=== PATIENT | male | born 1985 | race Caucasian/White ===

== ENCOUNTER 2017-04-19 20:42 | Emergency (ER) | payer MEDICAID ==
[2017-04-19 20:50] VITALS: BP 127/74; PULSE 64; RESP 20; TEMP 98.2; O2SAT 95
--- NOTE | 2017-04-19 20:57 | EDPHY ---
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 No paresthesia. No sensory motor deficit. PHYSICAL EXAM (Prior to examination, patient consented to physical exam, hands were washed and my usual and customary physical exam procedures followed) 1) GENERAL: Well-developed, well-nourished, alert and oriented. Appears to be in no acute distress. 2) HEAD: Normocephalic 3) HEENT: sclera anicteric 4) LUNGS: Breathing comfortably. 5) SKIN: Flexor extensor function independently tested at the [facility] PIP D IP intact 6) MUSCULOSKELETAL: Right 2nd digit middle phalanx radial aspect 2.5 cm laceration . No visible palpable or foreign body. 7) NEUROLOGIC: Full sensation two-point discrimination intact distally (Toña,Paul Haleigh) Constitutional: Initial Vital Signs Temperature (C) 36.8 C 04/19/17 20:45 Heart Rate 64 04/19/17 20:45 Respiratory Rate 20 04/19/17 20:45 Blood Pressure 127/74 H 04/19/17 20:45 O2 Sat (%) 95 04/19/17 20:45 O2 Delivery Mode Room Air Allergies/Adverse Reactions: No Known Allergies Allergy (Unverified 04/19/17 20:45) Home Medications: Medication Instructions Recorded Albuterol 04/19/17 MDM/Departure - [facility] Procedures: Procedure: Laceration repair. I explained the indications, risks and benefits for both laceration repair and anesthetic administration. Verbal consent was obtained from the patient . The laceration on the right 2nd digit was anesthetized using 0.5% bupivicaine without epinephrine digital nerve block. After anesthetic administered the patient was observed for a period of time and had no apparent adverse effects. The wound was cleaned, prepped, draped in normal sterile fashion and explored to its base. No foreign body seen, no foreign bodies palpated. There were no deep structures involved. No tendon injury was identified. The wound was repaired with 4 simple interrupted 5 O Prolene sutures . The wound repair was simple. The procedure was performed by myself. Patient has been informed that scarring will occur, although efforts have been made to minimize this. ( Paul Ding) ED Course/Re-evaluation: I reviewed the patient his x-ray showing no definitive radiopaque foreign body. You need to return to the ER in 10 days for suture removal. Usual and customary wound precautions and instructions provided. Care of patient under supervision of secondary supervising physician Dr Deras . (Paul Ding) The patient was evaluated and managed by the physician's customer service assistant. My cosignature indicates that I reviewed the chart and I agree with the findings and plan of care as documented. I am the secondary supervising physician. ( Janelle Deras) - Depart Disposition: Home, Routine, Self-Care Clinical Impression: Finger laceration Qualifiers: Encounter type: initial encounter Finger: index finger Damage to nail status: without damage Foreign body presence: without foreign body Laterality: right Qualified Code(s): S61.210A - Laceration without foreign body of right index finger without damage to nail, initial encounter Condition: Good Instructions: Care For Your Stitches (ED), Laceration (ED) Referrals: Return, to the ER in 10 days for suture removal [Other] - 04/29/17
== END 2017-04-19 22:07 | disposition home or self-care (01) ==
PROC: 0HQFXZZ Repair Right Hand Skin, External Approach (ICD-10-PCS; principal; 2017-04-19)
DX: S61.210A Laceration without foreign body of right index finger without damage to nail, initial encounter (principal); X58.XXXA Exposure to other specified factors, initial encounter; Y92.63 Factory as the place of occurrence of the external cause; Y99.0 Civilian activity done for income or pay; Y93.G3 Activity, cooking and baking

== ENCOUNTER 2018-09-03 00:34 | Emergency (ER) | payer MEDICAID | END 2018-09-03 03:00 | disposition home or self-care (01) ==

== ENCOUNTER 2018-09-05 02:27 | Emergency (ER) | payer MEDICAID ==
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
[2018-09-05 03:57] VITALS: BP 120/77
== END 2018-09-05 04:15 | disposition home or self-care (01) ==
LOC: EDUNIT#
DX: G40.89 Other seizures (principal); F41.9 Anxiety disorder, unspecified

== ENCOUNTER 2018-09-05 09:12 | Inpatient (IN) | payer MEDICAID ==
[2018-09-05] MEDS ORDERED: NS 1,000 ML IV ONE (10:23)
[2018-09-05] MEDS ORDERED: PROMETHAZINE HCL 25 MG/ML INJ IVP ONE (10:23)
[2018-09-05] MEDS ORDERED: DIAZEPAM 10 MG/2 ML SYR IVP ONE (12:11)
[2018-09-05] MEDS ORDERED: ONDANSETRON 4 MG/2 ML VIAL IVP PRN (13:30)
[2018-09-05] MEDS ORDERED: IPRATROPIUM 0.03% NASAL SPRAY EACHNARE PRN (13:31)
[2018-09-05] MEDS ORDERED: OXYMETAZOLINE 30 ML NASAL SPRAY EACHNARE PRN (13:31)
[2018-09-05] MEDS ORDERED: OLANZapine DISINTEGR 5 MG TAB PO PRN (13:31)
--- NOTE | 2018-09-05 13:55 | PDGENHP ---
History and Physical - Chief Complaint Seizure - History of Present Illness Chacorta Elizondo is a 32 yo M with a PMhx of pseudoseizures, ADHD, anxiety, heroin use , asthma who presents to [facility] for seizure. Patient was brought from [facility] for a 3rd time in approx. 24 hours where it was reported he had 5 minutes of inconsistent tonic clonic activity that was witnessed by other patients there. He denies any tongue laceration, urinary incontinence, head trauma. He denies any postictal confusion. He notes that he has a hx of pseudoseizures for which he has had workups done including head scans, EEG and was prescribed long acting Xanax 2 mg daily. He lost his insurance about 1 year ago and was buying Xanax off of the street which he could no longer afford and has not taken it for a long time. He does not recall his last seizure. ED reports that staff at [facility] found patient taking his own medications there. He notes ~3 years of heroin use with last use right before admission to [facility] a few days ago. He denies any chest pain, SOB, n/v, f/c, d/c. History Information - Allergies/Home Medication List Allergies/Adverse Reactions: No Known Allergies Allergy (Verified 09/05/18 09:13) Home Medications: Albuterol 04/19/17 [Last Taken Unknown] I have personally reviewed and updated: family history, medical history, social history, surgical history - Past Medical History asthma Additional medical history: ADHD, Pseudoseizures - Surgical History Reports: no pertinent surgical hx - Family History Positive for: non-pertinent - Social History Smoking Status: Never smoked Drug Use: Heroin Review of Systems Review of Systems: ROS: 10pt was reviewed & negative except for what was stated in HPI & below Physical Exam Physical Exam: Temp Pulse Resp BP Pulse Ox 36.3 C 51 L 16 122/73 H 98 09/05/18 09:14 09/05/18 12:00 09/05/18 12:00 09/05/18 12:00 09/05/18 12:00 Constitutional: chronically ill appearing, unkempt Eyes: PERRL, EOMI Ears, Nose, Mouth, Throat: poor dentition, dry mucous membranes Cardiovascular: no murmur, rub, or gallop, bradycardia, No edema Respiratory: no respiratory distress, clear to auscultation Gastrointestinal: soft, non-tender abdomen Skin: warm Musculoskeletal: full muscle strength Neurologic: AAOx3 Psychiatric: anxious Assessment & Plan Assessment: Pseudoseizures - Patient admitted after witness tonic clonic activity at [facility], no tongue laceration on exam, no reported postictal period, no urinary incontinence - Possibly in setting of benzodiazepine withdrawal - Reports hx of Pseudoseizures, was taking 2 mg "long acting" Xanax daily up until lost insurance 1 yr ago - S/p 5 mg IV Valium in ED, AAOx3 on exam on admission - Will place seizure precautions, PRN Ativan as part of withdrawal order set - Will hold off on ordering ER Xanax 2 mg that patient reports, will place Neurology consult to evaluate in the AM for ongoing anti-epileptics and further necessary testing (possible EEG) Heroin/Benzodiazepine Dependence - Was previously at [facility] for detox - Will order withdrawal order set for management of withdrawal symptoms - Consult CM for dispo planning Bradycardia - Seen in ED recently for bradycardia at [facility] - HR 50's on admission - EKG reviewed with sinus bradycardia, no pauses, signs of heart block - Continue to monitor Asthma -Lungs CTA on admission -Will order PRN Albuterol for SOB Metabolic Acidosis - In setting of possible seizure - S/p IVF - Continue to monitor Anxiety - Reports uncontrolled anxiety for which he was prescribed Zoloft in the past - PRN Ativan as above as part of opoid withdrawal order set - Consider starting antidepressant prior to discharge FEN: S/p IVF, Regular DVT PPx: Low risk, SCDs Code: FULL Dispo: Admit to Observation
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
[2018-09-05] MEDS ORDERED: IBUPROFEN 600 MG TAB PO PRN (14:09)
[2018-09-05] MEDS ORDERED: ALBUTEROL 60 PUFFS/8 GM MDI IH PRN (14:09)
[2018-09-05] MEDS ORDERED: DICYCLOMINE 10 MG CAP ONE (14:17)
[2018-09-05] MEDS: DICYCLOMINE 20 MG TAB PO PRN (14:21)
--- NOTE | 2018-09-05 14:48 | CPEKG ---
Test Reason : OPEN Blood Pressure : / mmHG Vent. Rate : 039 BPM Atrial Rate : 039 BPM P-R Int : 150 ms QRS Dur : 092 ms QT Int : 504 ms P-R-T Axes : 063 014 047 degrees QTc Int : [address] elev, probable normal early repol pattern Confirmed by Marcello Deras ([id number]) on 09/05/2018 2:47:38 PM Referred By: MARCELLO DERAS Confirmed By:Marcello Deras
[2018-09-05 14:49] LABS: PLATELET COUNT 246 10^3/uL (150-400)
--- NOTE | 2018-09-05 16:51 | ASMTCMCOM ---
CM Note CM Note Notes: Pt presented to the ED through triage from [facility] for bradycardia and detox staff stating that pt has been taking his own benzodiazepines while at their facility. This is the pt's 3rd ED visit in the past 2 days. ED CM was initially consulted to look into getting pt into other detox options, treatment programs, provide resources, etc. Pt admitted for bradycardia, pseudoseizures, and benzo and heroin withdrawal. Pt states he initially went to detox for heroin withdrawal 2-3 days ago and admits to "sneaking in a couple of xanax because I was scared I wasn't going to be able to handle the withdrawal. It was stupid. I shouldn't have done it but I was scared." Pt states he only took one of the xanax the 1st night he was at detox, and then has been receiving Librium via detox staff since then. Pt states he has been using heroin for more than 10 years and in the past couple of years has used up to 2g/day everyday. Pt's last use of heroin was 2-3 days ago right before he went to detox. Pt states he has been using xanax for more than 10 years and recently has been using at least 2mg/day every day and his last use was 2-3 days ago. Pt states he initially was given a Rxn for Xanax more than 10 yrs ago for his seizures, "but that is what started all the drugs...I couldn't afford the Rxn so I started buying it on the street. Then it became difficult to find so I started using heroin." Pt denies SI and HI. Pt states he has a history of ADHD, depression, severe anxiety and panic attacks. Pt states he has never been seen by a mental health professional but then per H&P states he has been on Zoloft in the past. Pt states he has a history of seizures "but I don't have an actual seizure disorder. I don't have epilepsy. No one can tell me why I have seizures but they happen often and especially if I have a panic attack. I've been told they are pseudoseizures but I don't even know what that means." Pt states he does not have a PCP but gets seen at the [facility] in [place] "every now and then." Pt states he has never been seen by a neurologist. Pt mentioned he has been seen at [facility] and [facility] recently. Pt states he lives in an apartment in [place] with his two children and their mother, and a roommate. Pt states he has plans to followup outpatient in [place] for ongoing treatment and that his roommate would be able to transport him. Pt states he has been seen at the [facility] in the past for suboxone but is adamant that he "does not want to be on suboxone or methadone or any other replacement drug ever again." Pt could be a candidate for the [facility]: Patient Navigator, Charlene Hernandez ([phone]) to come visit pt and to ensure pt is making a fully educated/informed decision to NOT consider MAT w/suboxone; ED CM will reach out on Thursday. Exact DC needs TBD but pt will most likely need assistance w/ OP or IOP substance abuse treatment resources/referrals, PCP ([facility] in [place] ([phone]) care coordination, mental health resources (try to get pt an appt w/[facility] in [place]). [facility] referral sent via e-mail. CM to follow. Date Signed: 09/05/2018 04:50 PM Electronically Signed By:Diana Huynh RN
[2018-09-05] MEDS: LOPERAMIDE HCL 2 MG CAP PO PRN (21:45)
[2018-09-05] MEDS: LORazepam 1 MG TAB PO PRN (22:51)
[2018-09-05] MEDS: ONDANSETRON DISINTEGRATING 4 MG TAB PO PRN (23:09)
[2018-09-06] MEDS: DICYCLOMINE 20 MG TAB PO PRN ×3 (00:51→21:53)
[2018-09-06] MEDS: ACETAMINOPHEN 325 MG TAB PO PRN ×3 (02:08→21:53)
[2018-09-06] MEDS: MAG HYDROX/AL HYDROX/SIMETH 30 ML UDCUP PO PRN (02:59)
[2018-09-06] MEDS: hydrOXYzine HCL 25 MG TAB PO PRN ×3 (03:50→23:38)
[2018-09-06] MEDS ORDERED: NS 500 ML IV ONE (04:04)
[2018-09-06] MEDS ORDERED: NS 1,000 ML IV SCH (04:15)
--- NOTE | 2018-09-06 12:36 | GCON ---
[f rep st] CONSULTATION NEUROLOGY CONSULT DATE OF CONSULTATION: 09/06/2018 REFERRING PHYSICIAN: Dr. Makenzie CHIEF COMPLAINT: Convulsion. HISTORY OF PRESENT ILLNESS: The patient is a very pleasant 32-year-old gentleman originally from [place] who has a longstanding history of chemical dependence on opiates. The patient states he has anxiety and panic attacks and the diagnosis of "pseudoseizures" made in [place] by extensive neurologic testing. He moved here around 2 years ago and states that he lost insurance at some point and started using benzodiazepines recreationally. He was previously apparently prescribed Xanax 2 mg daily in [place]. He then also started using heroin as well. He was in chemical dependence treatment and had 3 ER visits within a short period of time in the last 48 hours for bradycardia and then 2 convulsive events. The 1st convulsive event was thought to be possible nonepileptic and the second one may have been a withdrawal seizure from benzodiazepines. Not clear. He states he does not have a diagnosis of epilepsy nor any epilepsy risk factors. He states he has a diagnosis of "pseudoseizures" and perhaps benzodiazepine withdrawal seizures is what he has been told in the past. His urine screen was non-negative for benzodiazepines. The patient does not recall the 2nd event, but the 1st event and 2nd ED visit he thinks he was aware. REVIEW OF SYSTEMS: 10-point review of systems was done, only pertinent to the HPI. For past medical history, social history, family history, home medications, allergies, see Dr. Banegas's H and P. PHYSICAL EXAM: VITAL SIGNS: Blood pressure is 116/72, temperature is 36.4, respiration 16. GENERAL: He is awake and alert, very pleasant. He has no aphasia. NEURO: Cranial nerve exam 2 through 7 is normal. Motor exam shows no focal weakness or convulsive movements. No myoclonus. Sensation to light touch is normal in all 4 extremities. Coordination is normal upper and lower extremities. IMPRESSION/PLAN: 1. Convulsions, not otherwise specified. 2. Chemical dependence. This patient is presenting with a complex history of chemical dependence, mood disorder, and convulsive events that are not clear. He has been told these have been diagnosed as nonepileptic events with extensive neurologic testing in [place]. He certainly may at additional risk for withdrawal seizures as well based on his chemical dependence history. The third ED visit for convulsion was company by a low bicarbonate on lab testing. Certainly, he may have had a withdrawal seizure. He was counseled at length. Going forward, he will be on indefinite driving restrictions and seizure precautions. He understands and agrees. He does not drive. He will continue close outpatient followup with psychiatry and chemical dependence and consult with the Department Neurology at the [facility] for confirmation of the underlying convulsive disorder. Specifically, he may need repeat epilepsy monitoring to clarify whether he has unprovoked epileptic seizures versus nonepileptic psychogenic events to help ongoing treatment in conjunction with this chemical dependence treatment in the future. He understands and agrees to the plan. He will follow up with the [facility]. Information given to make the appointment. No further recommendations from my standpoint. We will sign off and follow up as needed. Please do not hesitate to call if there are any questions or changes in his neurologic status. Seventy total minutes floor time today; over 50% in direct counseling and coordination of care. /[id number]/MODL MTDD
--- NOTE | 2018-09-06 15:01 | ASMTCMCOM ---
CM Note CM Note Notes: Patient seen by Opiate Navigators Charlene ext [phone] and Diana ext [phone]. They were stopping back to obtain a signature. The patient is currently sleeping. They will return tomorrow morning to give him information on local resources to assist him with his drug addiction. He will need a follow up appointment made at [facility] in [place] prior to discharge.. May likely be ready for dc tomorrow. Plan: OP versus inpt treatment program for detox. Date Signed: 09/06/2018 03:00 PM Electronically Signed By:Meg Yancey RN
--- NOTE | 2018-09-06 15:02 | ASMTCMCOM ---
CM Note CM Note Notes: Patient plan of care reviewed with MD. Patient is bradycardic and c/o feeling dizzy with movement. He was seen by [facility] but there was no contact from them with CM. The patient was attempting to detox at the [facility] but ended up using some medications and is not welcome back. CM will meet with patient and encourage him to call [facility] and [facility] for possible help. Plan: Likely to discharge home when medically cleared with resources for detox. Date Signed: 09/06/2018 12:22 PM Electronically Signed By:Meg Yancey RN
--- NOTE | 2018-09-06 15:02 | HOSPPROG ---
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, was taking 2 mg "long acting" Xanax daily up until lost insurance 1 yr ago - S/p 5 mg IV Valium in ED - Continue seizure precautions, PRN Ativan as part of withdrawal order set - Will hold off on ordering ER Xanax 2 mg that patient reports - Neurology consulted this AM who recommends no ongoing anti-epileptics, outpatient f/u with Neurologist at the [facility] Heroin/Benzodiazepine Dependence - Was previously at [facility] for detox - Continue withdrawal order set for management of withdrawal symptoms - Consulted CM for dispo planning this AM Bradycardia - Seen in ED recently for bradycardia at [facility] - HR 50's on admission - EKG reviewed with sinus bradycardia, no pauses, signs of heart block Asthma -Lungs CTA on admission -PRN Albuterol for SOB Metabolic Acidosis - In setting of possible seizure - S/p IVF Anxiety - Reports uncontrolled anxiety for which he was prescribed Zoloft in the past - PRN Ativan as above as part of opoid withdrawal order set FEN: S/p IVF, Regular DVT PPx: Low risk, SCDs Code: FULL Dispo: Pending CM findings outpatient detox, if not d/c tomorrow Subjective: Pt reports some LH when walking to bathroom this morning Objective: Vital Signs Temp Pulse Resp BP Pulse Ox 36.4 C 45 L 24 H 108/65 96 09/06/18 11:35 09/06/18 11:35 09/06/18 11:35 09/06/18 11:35 09/06/18 11:35 Laboratory Results 09/05/18 14:40 09/05/18 14:40 09/05/18 09/06/18 09/07/18 05:59 05:59 05:59 Intake Total 2250 Balance 2250 - Physical Exam Constitutional: chronically ill appearing, unkempt Eyes: PERRL Ears, Nose, Mouth, Throat: moist mucous membranes Cardiovascular: bradycardia Respiratory: no respiratory distress Gastrointestinal: soft, non-tender abdomen Skin: warm Musculoskeletal: full muscle strength Neurologic: AAOx3 Psychiatric: anxious ICD10 Worksheet Patient Problems: Problems Problem Status Onset Bradycardia Acute Polysubstance abuse Acute Pseudoseizure Acute
[2018-09-06] MEDS: LOPERAMIDE HCL 2 MG CAP PO PRN (17:35)
[2018-09-06] MEDS: METHOCARBAMOL 750 MG TAB PO PRN ×2 (17:35→23:38)
[2018-09-06] MEDS: LORazepam 1 MG TAB PO PRN (21:54)
[2018-09-07] MEDS: LORazepam 1 MG TAB PO PRN ×2 (07:24→23:58)
--- NOTE | 2018-09-07 09:08 | PDMN ---
Medical Necessity Medical necessity: Change to IP, as of 09/06/18, per MD & MCG; los >2 mn for ongoing management of heroin/benzodiazepine withdrawal w/pseudoseizures & bradycardia; requiring further monitoring, COWS & CM consult for dc planning
[2018-09-07] MEDS ORDERED: NS 1,000 ML IV ONE (10:21)
--- NOTE | 2018-09-07 10:29 | HOSPPROG ---
Hospitalist Progress Note Assessment/Plan: # narcotic w/d - i do not recommend that he go back on bzd's, he is getting some ativan here # seizures vs pseudoseizures - no tx per neuro - needs outpatient f/u at - no driving, no specific treatment # bradycardia - reports this is his baseline # dizziness - i do not think this is d/t his bradycardia - suspect related to w/d - 1L NS and follow - not safe on feet for discharge today # anxiety - i discussed that i do not plan to rx bzd's on discharge - start zoloft Subjective: feels very dizzy when standing Objective: Vital Signs Temp Pulse Resp BP Pulse Ox 36.4 C 45 L 17 118/85 H 96 09/07/18 08:00 09/07/18 08:00 09/07/18 08:00 09/07/18 08:00 09/07/18 08:00 09/06/18 09/07/18 09/08/18 05:59 05:59 05:59 Intake Total 400 Output Total 1025 Balance -625 chart reviewed - Time Spent With Patient Time Spent with Patient: greater than 35 minutes Time Spent with Patient: Greater than 35 minutes spent on this patients care, greater than 50% of time spent counseling, educating, and coordinating care regarding the above mentioned plan. - Physical Exam Constitutional: uncomfortable, other (unstable on feet) ICD10 Worksheet Patient Problems: Problems Problem Status Onset Pseudoseizure Acute Polysubstance abuse Acute Bradycardia Acute
[2018-09-07] MEDS: SERTRALINE HCL 25 MG TAB PO SCH (10:37)
--- NOTE | 2018-09-07 13:13 | CPEKG ---
Test Reason : OPEN Blood Pressure : / mmHG Vent. Rate : 034 BPM Atrial Rate : 034 BPM P-R Int : 157 ms QRS Dur : 095 ms QT Int : 541 ms P-R-T Axes : 054 034 040 degrees QTc Int : [address] elev, probable normal early repol pattern Confirmed by Jonah Payan ([id number]) on 09/07/2018 1:12:44 PM Referred By: Ginger Quesada Confirmed By:Jonah Payan
--- NOTE | 2018-09-07 15:45 | ASMTCMCOM ---
CM Note CM Note Notes: Pt states he will d/c home and is not interested in entering any treatment at d/c. Pt reports he has a list of NA meetings and he thinks it best he plan to "work" the NA program. Pt agreeable to follow up appointment scheduled at [facility]. Pt thinks he may have transport home, he also says he may be taking the bus home. Pt will have outpatient neurology follow up at [place]. CM to follow. D/c plan: Independent Date Signed: 09/07/2018 03:44 PM Electronically Signed By:ELENITA Torres
[2018-09-07] MEDS: METHOCARBAMOL 750 MG TAB PO PRN (15:54)
[2018-09-07] MEDS: DICYCLOMINE 20 MG TAB PO PRN (17:37)
[2018-09-07] MEDS: MAG HYDROX/AL HYDROX/SIMETH 30 ML UDCUP PO PRN (23:58)
[2018-09-08 08:27] VITALS: BP 131/71
[2018-09-08] MEDS: SERTRALINE HCL 25 MG TAB PO SCH (09:46)
[2018-09-08] MEDS: ONDANSETRON DISINTEGRATING 4 MG TAB PO PRN (11:19)
--- NOTE | 2018-09-08 11:27 | NEUROPROG ---
Assessment: 1. Convulsion NOS 2. Chemical dependence The patient was reason him and as he is still in the hospital. He has had no further seizures. He is being hydrated. He was having some orthostatic symptoms. He is getting minimal or no benzodiazepines now. We will discontinue benzodiazepines completely. He will be not discharged on benzodiazepines. Going forward, he will be on indefinite driving restrictions and seizure precautions. He will see [facility] division of epilepsy for consultation and monitoring. He has been diagnosed with nonepileptic events in [place]. He will see [facility] for confirmation of this diagnosis and exclusion of any other underlying predisposition toward seizures. He may have had drug withdrawal seizures in the past. The patient is agreeable to the plan. He will make his appointment years to [place]. No further recommendations now. We will sign off and follow up as needed. Please do not hesitate to call if any questions or changes in neurologic status with this patient Subjective: No new symptoms No seizure Objective: Vital Signs Temp Pulse Resp BP Pulse Ox 36.6 C 47 L 16 131/71 H 96 09/08/18 08:00 09/08/18 08:00 09/08/18 08:00 09/08/18 08:00 09/08/18 08:00 Laboratory Results 09/07/18 20:44 09/07/18 09/08/18 09/09/18 05:59 05:59 05:59 Intake Total 400 900 Output Total 1025 700 Balance -625 200 Awake and alert, lucid Very pleasant No convulsive movements in my presence 25 total minutes floor time; over 50% counseling and coordination of care. Allergies/Adverse Reactions: No Known Allergies Allergy (Verified 09/05/18 09:13)
--- NOTE | 2018-09-08 14:08 | GDS ---
[f rep st] DISCHARGE SUMMARY DIAGNOSES: 1. Narcotic withdrawal. 2. Suspected pseudoseizures. 3. Bradycardia. 4. Dizziness. 5. Anxiety. 6. Mild injection site infection. HOSPITAL COURSE: This is a 32-year-old man who was admitted from the [facility] after having a convulsive episode. He had previously been diagnosed with pseudoseizures in [place]. He was seen by Neurology who feels that is the most likely diagnosis; however, a withdrawal seizure is possible as well. Neurology did not recommend any antiepileptics. Did recommend following up with the [facility]'s epileptologist. He is suffering from very significant narcotic withdrawal. It is now 7 days since he used. He is still having symptoms. He is quite anxious for discharge as he feels that he needs to return back to work tomorrow. He has severe anxiety and been on long-term Xanax. I told him I did not feel comfortable prescribing more Xanax 0.5 mg #5, and he needs to follow up with his outpatient physicians at [facility]. He does have an appointment there on September 15. He has a mild left lower extremity injection site infection, had previously been treated by antibiotics and it appears that it has very good granulation tissue, although there is some mild erythema and tenderness around it. I do not appreciate any underlying abscess. I will give him additional 5 days of Keflex as well as Bactrim. He will follow up with his PCP regarding the evolution of this infection. We discussed his anxiety at length, I feel that this is driving a lot of his behaviors. He will follow up with [facility], did attempt to get a referral to a counselor or psychiatrist. FOLLOWUP: 1. Pablo Snow at [facility] on September 15 at 10 a.m. 2. [facility] epilepsy specialist for confirmation of the diagnosis of pseudoseizures or identification of another trigger for his seizures. BILLING: I spent more than 30 minutes on the day of discharge coordinating care. Copy requested to: Pablo Snow M.D. Shireen /[id number]/MODL MTDD
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
--- NOTE | 2018-09-08 14:29 | ASMTCMCOM ---
CM Note CM Note Notes: requests that CM help pt get medical records sent to [facility] Seizures and Epilepsy dept. Pt signed medical records release and CM sent to MR dept. Pt given phone number at [facility] that he will need to call and follow up. Date Signed: 09/08/2018 02:28 PM Electronically Signed By:Varsha Gutierrez RN
--- NOTE | 2018-09-08 16:28 | ASMTCMCOM ---
CM Note CM Note Notes: PT requests transportation back home, CM scheduled Medicaid transport, confirmation # [id number] Date Signed: 09/08/2018 04:27 PM Electronically Signed By:Varsha Gutierrez RN
== END 2018-09-08 16:20 | disposition home or self-care (01) | DRG 53 ==
LOC: INTOOBSV 13:22 → F3N 15:34 → OBSVTOIN 09-06 18:02
PROVIDERS: ADMIT Internal Medicine; ATTEND Internal Medicine
DX: R56.9 Unspecified convulsions (principal); F11.23 Opioid dependence with withdrawal; R00.1 Bradycardia, unspecified; R42 Dizziness and giddiness; F41.9 Anxiety disorder, unspecified; L08.9 Local infection of the skin and subcutaneous tissue, unspecified; J45.909 Unspecified asthma, uncomplicated; F13.239 Sedative, hypnotic or anxiolytic dependence with withdrawal, unspecified
CPT/HCPCS: 80305; 96374; 97116-GP; 97161-GP; G0378; G0480; J2405; J2550; J3360